=== PATIENT | female | born 1955 | race Caucasian/White ===

== ENCOUNTER 2020-08-27 07:31 | Day surgery (SDC) | payer MEDICARE, MEDICAID, SELFPAY ==
[2020-08-27] VITALS (7 sets, daily range): BP systolic 144–173; BP diastolic 90–105; PULSE 60–75; RESP 10–16; TEMP 36.2–36.9; O2SAT 90–95; BMI 24.5
[2020-08-27 08:07] LABS: COVID19 -Nasal RAPID Negative (Negative)
[2020-08-27] MEDS: SODIUM CHLORIDE 0.9% 1,000 ML 84 ML IV (08:44)
--- NOTE | 2020-08-27 09:17 | PM.HP.1 ---
History of Present Illness History of Present Illness Chief complaint: [facility] [place] Narrative: Indication possible GI bleed with history of cirrhosis rule out esophageal varices Patient History Medical History (Updated 08/27/20 @ 08:43 by Zakia Hassan RN) Hypertension Liver cirrhosis Family & Social History Social History: household members none Tobacco & Substance use: Tobacco type cigarettes Smoking Status Current some day smoker alcohol intake frequency holiday/special occasion Substance Use Type does not use Meds Home Medications and Allergies Allergies Allergy/AdvReac Type Severity Reaction Status Date / Time gabapentin Allergy Fainting Verified 08/27/20 08:42 risperidone [From Risperdal] Allergy Verified 08/27/20 08:42 Exam Vital Signs (past 8 hours): - 08/27/20 08:32 Temperature 97.2 F L Pulse Rate 71 Respiratory Rate 16 Blood Pressure 173/105 H Pulse Oximetry 95 Oxygen Delivery Method Room Air Narrative Exam Narrative: Oropharynx free of lesions Chest clear to auscultation percussion Cardiac exam reveals no S3 or murmur Objective Labs Labs: Laboratory Results - last 24 hr 08/27/20 07:41 SARS-CoV-2 (PCR) Negative Assessment & Plan Assessment & Plan narrative: Cirrhosis with possible history of bleed. Rule out esophageal varices not present on endoscopy previously. Risks, benefits, alternatives have been explained.
--- NOTE | 2020-08-27 09:18 | PM.OP.ENDO ---
Procedure & Clinicians Study performed: EGD Indications: Cirrhosis rule out varices Surgeon: Palak Valenzuela Procedure Notes Procedure in detail: After informed consent was obtained the patient was placed in left lateral decubitus position. Video upper scope was placed into the oropharynx and with the patient's help swelled into the esophagus. The esophagus stomach and duodenum were carefully examined. On withdrawal, retroflexed view the GE junction was performed. The scope was removed. The patient tolerated procedure well. Blood loss none Complications none Sedation Total sedation time 11 minutes Versed 4 mg fentanyl 100 micro g IV titration Findings 1. No esophageal varices and no peptic esophagitis 2. Intense striped gastritis in the antrum body with some adherent hematin flecks in the antrum. 3. Mild gastropathy of portal hypertension 4. Normal duodenal bulb and sweep Rhondi will stay on her current medications and have follow-up EGD in 1 year to check for esophageal varices.
[2020-08-27] MEDS: fentaNYL 250 MCG/5 ML INJ IV (09:25)
[2020-08-27] MEDS: MIDAZOLAM 5 MG/5 ML VIAL IV (09:30)
--- NOTE | 2020-08-27 09:57 | SUR.PHASEI ---
Pt received to PACU at 0936 after EGD with sedation. Report from ROSALINDA Sommer. Bilat hearing aides in place.
== END 2020-08-27 10:25 | disposition home or self-care (01) ==
PROVIDERS: PCP Family Medicine; Referring Provider Internal Medicine Gastroenterology; Visit Provider Internal Medicine Gastroenterology
PROC: 0DJ08ZZ Inspection of Upper Intestinal Tract, Via Natural or Artificial Opening Endoscopic (ICD-10-PCS; CPT 43235; principal; 2020-08-27 09:00)
DX: K70.30 Alcoholic cirrhosis of liver without ascites (principal); Z86.19 Personal history of other infectious and parasitic diseases; Z20.822 Contact with and (suspected) exposure to COVID-19; F17.210 Nicotine dependence, cigarettes, uncomplicated; K29.70 Gastritis, unspecified, without bleeding; K76.6 Portal hypertension; K31.89 Other diseases of stomach and duodenum
CPT/HCPCS: 43235; 87635; J2250; J3010

== ENCOUNTER → 2020-11-25 12:02 | Outpatient (CLI) | payer MEDICARE, MEDICAID, SELFPAY ==
--- NOTE | 2020-11-25 12:07 | DI.MRI.S_ITS ---
BREAST MRI OF BOTH BREASTS: 11/25/2020 CLINICAL: Coagulation defect. TECHNIQUE: The patient was placed prone in a dedicated breast imaging coil. Precontrast axial STIR and 3D FLASH without fat saturation sequences were obtained. Both before and after bolus injection of contrast, sequential 1-minute axial 3D FLASH with fat saturation sequences for 3 time points, with subtraction images and maximum intensity projections (MIP's) generated. Delayed sagittal FLASH images with fat saturation were also obtained. Computer-aided detection, including computer algorithm analysis of MRI image data for lesion detection and characterization, pharmacokinetic analysis, with further physician review for interpretation, was performed. COMPARISON: [facility], , US LEFT BREAST, 03/18/2020, 11:06. Outside Film, CT, CT ABDOMEN PELVIS WITH CONTRAST, 03/30/2019, 13:57. [facility], , MRI BREAST BILATERAL W / WO CONTRAST, 03/04/2020, 15:22. FINDINGS: Image quality: Excellent. There is mild background parenchymal enhancement. Right breast: No mass or non masslike enhancement. Left breast: An oval enhancing mass with smooth margins measures 0.7 x 0.6 x 0.6 cm and is present in the 3 o'clock position of the left breast at a middle depth. It appears stable given differences in technique between two exams. Kinetic analysis demonstrates benign enhancement pattern with medium initial enhancement and persistent/plateau delayed characteristics. Immediately anterior in the breast at the 3 o'clock position, there is enhancing cluster of foci which demonstrates benign enhancement pattern. This cluster measures 6 mm in greatest extent. A microlobulated mass measuring 0.7 x 0.8 x 0.8 cm with slightly spiculated margins is present at the one to 2 o'clock position at a mid to posterior depth, better defined on the current study. Kinetic analysis demonstrates medium initial enhancement and benign, persistent delayed enhancement. Miscellaneous: The heart appears enlarged, accentuated by prone positioning. There are lingular atelectatic changes. No axillary adenopathy. There is a prominent left internal mammary chain lymph node which demonstrates a benign, fatty hilum. This area was not well imaged on the prior study. The visible portions of the liver appear normal. IMPRESSION: PROBABLY BENIGN 1. Stable size of 0.7 cm 03:00 o'clock left breast mass with benign enhancement characteristics, probably lymph node or fibroadenoma. 2. Cluster of enhancing foci anterior to the 03:00 o'clock mass is unchanged. 3. Slight increase in size and definition of a 0.8 cm benign-appearing enhancing mass at the one to 2 o'clock position in the left breast. 4. Incidental note made of prominence, but nonspecific left internal mammary chain node with benign features. 5. No suspicious right breast findings. BIRADS three, probably benign. Six-month follow-up MRI is recommended to assess stability of above findings. COMMENT: The imaging literature indicates that a negative contrast breast MRI examination has a high sensitivity and a moderate specificity for detecting and excluding invasive carcinomas to a detection threshold of 3-5 mm; nonetheless, appropriate clinical and mammographic follow-up are recommended. MRI is not sensitive for detecting DCIS (ductal carcinoma in situ) and may not detect large invasive neoplasms that show only minimal enhancement such as mucinous carcinoma. If there are suspicious calcifications or clinically worrisome palpable masses, then biopsy should still be considered. Invasive neoplasms can be hidden by co-existent and benign enhancement caused by mastitis, hormone therapy effects, radiation therapy, , and recent biopsy or surgery. False positive examinations can occur in a number of circumstances, including breasts that have recently been subject to invasive procedures and those that contain atypical ductal hyperplasia, hormonally stimulated glandular tissue, fat necrosis, or radial scars. This exam was interpreted at Station ID: [id number]. Electronically Signed By: Daxa bojorquez/:11/25/2020 17:02:32 letter sent: Followup Recommended ACR BI-RADS Category 3: Probably benign 3343F
== END ==
PROVIDERS: PCP Family Medicine; Referring Provider Internal Medicine; Visit Provider Internal Medicine
DX: Z12.39 Encounter for other screening for malignant neoplasm of breast (principal); N63.25 Unspecified lump in the left breast, overlapping quadrants; D68.9 Coagulation defect, unspecified
CPT/HCPCS: 77049

== ENCOUNTER → 2021-06-04 09:10 | Outpatient (CLI) | payer MEDICARE, MEDICAID, SELFPAY ==
--- NOTE | 2021-06-04 09:12 | DI.ECHO.S_ITS ---
[facility] +---------+ : : [address] : : : : [id number] : : : : Phone: [phone]+ Echocardiogram Report + + :Name: SWETHA EPPS Study Date: 06/04/2021 Height: 62 in : :[facility] ReadingLocation: Weight: 140 lb : : Gender: Female BSA: 1.6 m2 : :: 1955 Age: 65 yrs BP: 127/84 mmHg: :Reason For Study: DYSPNEA : :Ordering Physician: YOVANI, : :CHAPARRO KAIS[facility] Performed By: Leann Dueñas : :Referring: CHAPARRO PINA MD : + + Interpretation Summary The left ventricular cavity is small. The ejection fraction is estimated to be 60-65%. The interventricular septum is flattened, consistent with a right ventricular pressure/volume condition. Grade II diastolic dysfunction. The right ventricle is moderately dilated. Right ventricular systolic function is moderately reduced. There is mild mitral regurgitation. There is mild tricuspid regurgitation. PASP is approximately 50 to 55 mmHg. Compared to the prior study dated 10/29/2020, there has been a decrease in PA pressure. Procedure: A two-dimensional transthoracic echocardiogram with color flow and Doppler was performed. The study quality was technically adequate. Comparison is made with the echocardiogram of 10/29/2020. The patient was in sinus rhythm with heart rates between 59-63 bpm during the exam. Left Ventricle: The left ventricular cavity is small. The ejection fraction is estimated to be 60-65%. The interventricular septum is flattened, consistent with a right ventricular pressure/volume condition. Grade II diastolic dysfunction. Right Ventricle: The right ventricle is moderately dilated. Right ventricular systolic function is moderately reduced. Atria: The left atrium is mildly dilated. Right atrial size is normal. There is no Doppler evidence for an interatrial shunt. Mitral Valve: The mitral valve leaflets appear mildly thickened, but open well. There is mild mitral regurgitation. Aortic Valve: The aortic valve is mildly calcified. The aortic valve is trileaflet. There is no aortic valve stenosis. No aortic regurgitation is present. Tricuspid Valve: The tricuspid valve is normal in structure and function. There is mild tricuspid regurgitation. PASP is approximately 50 to 55 mmHg. Pulmonic Valve: The pulmonic valve leaflets are thin and pliable; valve motion is normal. There is trace pulmonic regurgitation. Great Vessels: The aortic root is normal size. The dimensions of the ascending aorta are normal. The IVC is of normal diameter and collapses greater than 50% with a sniff. This suggests a low right atrial pressure of 3 mm Hg. Pericardium/ Pleura There is no pericardial effusion. There is no pleural effusion. MMode/2D Measurements & Calculations LVIDd: 4.0 cm LVOT diam: 2.0 cm LVIDs: 2.8 cm Ao root diam: 2.8 cm FS: 31.3 % asc Aorta Diam: 2.6 cm IVSd: 0.62 cm Ao Arch Diam (Prox Trans): 3.0 cm LVPWd: 1.0 cm LV ragland. diameter/BSA (cm/m^2): 2.5 LV sys. diameter/BSA (cm/m^2): 1.7 LA A2 area: 20.8 cm2 RA long axis: 6.3 cm LA A4 area: 18.2 cm2 RA area: 17.5 cm2 LA length (vol): 5.2 cm RA vol: 41.5 ml LA vol: 61.4 ml RA : 25.3 ml/m2 LA vol index: 37.4 ml/m2 IVC diam: 1.3 cm RVD1 (basal): 4.0 cm RVD2 (mid): 3.3 cm TAPSE: 1.7 cm Doppler Measurements & Calculations Ao V2 max: 148.7 cm/sec LVOT Max Dung: 97.5 cm/sec Ao V2 mean: 114.0 cm/sec LV V1 max P.8 mmHg Ao max P.8 mmHg LV V1 VTI: 21.8 cm Ao mean P.5 mmHg NEHEMIAS(I,D): 1.8 cm2 Ao V2 VTI: 36.9 cm NEHEMIAS(V,D): 2.0 cm2 sev ratio: 0.59 NEHEMIAS indexed to BSA (cm^2/m^2): 1.1 MV E max dung: 68.9 cm/sec TR max dung: 332.6 cm/sec MV A max dung: 86.8 cm/sec TR max P.3 mmHg MV E/A: 0.79 PA V2 max: 80.1 cm/sec Med Peak E' Dung: 3.7 cm/sec PA V2 mean: 51.5 cm/sec E/E' med: 18.7 PA mean P.3 mmHg Lat Peak E' Dung: 6.8 cm/sec PA pr(Accel): 24.2 mmHg E/E' lat: 10.2 E/e' average: 14.4 MV dec time: 0.29 sec [facility] 66.6 ml Reading Physician:10:59 AM
== END ==
PROVIDERS: PCP Family Medicine; Referring Provider Radiology Diagnostic Radiology; Visit Provider Radiology Diagnostic Radiology
DX: R06.00 Dyspnea, unspecified (principal); I08.1 Rheumatic disorders of both mitral and tricuspid valves
CPT/HCPCS: 93306

== ENCOUNTER → 2021-06-17 08:27 | Outpatient (CLI) | payer MEDICARE, MEDICAID, SELFPAY | PROVIDERS: PCP Family Medicine; Referring Provider Internal Medicine; Visit Provider Internal Medicine | DX: Z12.31 Encounter for screening mammogram for malignant neoplasm of breast (principal); Z53.20 Procedure and treatment not carried out because of patient's decision for unspecified reasons ==

== ENCOUNTER → 2021-07-10 11:24 | Outpatient (CLI) | payer MEDICARE, MEDICAID, SELFPAY ==
--- NOTE | 2021-07-10 | DI.MRI.S_ITS ---
BREAST MRI OF BOTH BREASTS: 07/10/2021 CLINICAL: MRI bilat. 6 month f/u left. TECHNIQUE: The patient was placed prone in a dedicated breast imaging coil. Precontrast axial STIR and 3D FLASH without fat saturation sequences were obtained. Both before and after bolus injection of contrast, sequential 1-minute axial 3D FLASH with fat saturation sequences for 3 time points, with subtraction images and maximum intensity projections (MIP's) generated. Delayed sagittal FLASH images with fat saturation were also obtained. Computer-aided detection, including computer algorithm analysis of MRI image data for lesion detection and characterization, pharmacokinetic analysis, with further physician review for interpretation, was performed. COMPARISON: [facility], , US LEFT BREAST, 03/18/2020, 11:06. [facility], , MRI BREAST BILATERAL W / WO CONTRAST, 03/04/2020, 15:22. [facility], , MR BREAST BI WO/W CON, 11/25/2020, 12:44. FINDINGS: Image quality: Study is degraded by moderate patient motion artifact secondary to nausea with additional imaging/incompletely fat saturation on multiple sequences. Patient did not complete the entire examination secondary to nausea and did not wish to proceed. There is mild background parenchymal enhancement. Right breast: No suspicious mass, non-mass enhancement, or architectural distortion. Stable appearance/distribution of background parenchymal enhancement. No skin or nipple abnormalities. Left breast: Accounting for differences in imaging technique, stable oval enhancing mass in the lateral aspect of the left breast at approximately the 3 o'clock position middle depth measuring 0.7 x 0.9 cm in axial cross-sectional dimension (image 55/series 6). This is T2 hyperintense as before. Imaging on the sagittal plane not performed due to patient terminating the exam. The previously described cluster of enhancing foci immediately anterior to this mass is stable to slightly decreased in conspicuity measuring approximately 0.7 x 0.5 cm in axial cross-sectional dimension (image 58/series 6). There is an enhancing 0.7 x 0.7 cm mass in the 2 o'clock position middle depth (image 72/series 6) which also appears relatively stable in size and appearance when accounting for slight differences in technique. Immediately anterior there is a 3 mm enhancing foci which appears more prominent and slightly larger compared to the prior study. Imaging on the sagittal plane not performed due to patient terminating the exam. Otherwise, no other new suspicious findings. No skin or nipple abnormalities. As before, these masses demonstrate mixed delayed phase enhancement kinetics. Miscellaneous: Redemonstration of mildly prominent left internal mammary chain lymph node which maintains normal reniform morphology, thin uniform cortex and central fatty hilum. IMPRESSION: INCOMPLETE: NEEDS ADDITIONAL IMAGING EVALUATION 1. Study limited due to moderate patient motion artifact and incomplete/heterogeneous fat saturation secondary to patient nausea. Patient did not want to complete the remainder of the examination. Additionally, no recent comparison mammogram is available for review. 2. Accounting for study limitation and slight differences in imaging technique, there are stable enhancing masses noted at the 2 o'clock and 3 o'clock positions middle depth of the left breast. The 3 o'clock mass correlates with possible fibroadenoma or lymph node seen on prior breast ultrasound dated March 18, 2020. There is, however, interval increase in size and prominence of a 3 mm enhancing focus immediately anterior to the 2 o'clock mass. This is nonspecific and is favored to represent more prominent background parenchymal enhancement. Consider second-look left breast ultrasound to re-evaluate these findings as the full MRI evaluation was not completed. Additionally, recommend updated mammographic evaluation or obtain copies of prior mammograms. 3. Stable cluster of enhancing foci immediately anterior to the 3 o'clock left breast mass. 4. Prominent but otherwise normal appearing superior left internal mammary chain lymph node, stable. COMMENT: The imaging literature indicates that a negative contrast breast MRI examination has a high sensitivity and a moderate specificity for detecting and excluding invasive carcinomas to a detection threshold of 3-5 mm; nonetheless, appropriate clinical and mammographic follow-up are recommended. MRI is not sensitive for detecting DCIS (ductal carcinoma in situ) and may not detect large invasive neoplasms that show only minimal enhancement such as mucinous carcinoma. If there are suspicious calcifications or clinically worrisome palpable masses, then biopsy should still be considered. Invasive neoplasms can be hidden by co-existent and benign enhancement caused by mastitis, hormone therapy effects, radiation therapy, , and recent biopsy or surgery. False positive examinations can occur in a number of circumstances, including breasts that have recently been subject to invasive procedures and those that contain atypical ductal hyperplasia, hormonally stimulated glandular tissue, fat necrosis, or radial scars. Electronically Signed By: Niles June M.D. aty/:07/15/2021 10:25:04 ACR BI-RADS Category 0: Incomplete [id number]
== END ==
PROVIDERS: PCP Physician Assistant; Referring Provider Internal Medicine; Visit Provider Internal Medicine
DX: Z12.31 Encounter for screening mammogram for malignant neoplasm of breast (principal); N63.21 Unspecified lump in the left breast, upper outer quadrant
CPT/HCPCS: 77049; A9579

== ENCOUNTER → 2021-09-28 12:24 | Outpatient (CLI) | payer MEDICARE, MEDICAID, SELFPAY ==
--- NOTE | 2021-09-28 12:27 | DI.US.S_ITS ---
LIMITED ULTRASOUND OF LEFT BREAST AND AXILLA: 09/28/2021 CLINICAL: Patient refuses mammograms. Incomplete recent brst MRI. Comparison is made to exams dated: 07/10/2021 breast MRI, 11/25/2020 breast MRI, 11/25/2020 breast MRI - [facility], 03/18/2020 ultrasound, and 03/04/2020 breast MRI - [facility]. Color flow and real-time ultrasound of the left breast 3 o'clock, and axilla regions were performed. Rodriguez scale images of the real-time examination were reviewed. There is a 0.8 cm x 0.7 cm x 0.7 cm oval mass with a circumscribed margin in the left breast at 3 o'clock middle depth 3 cm from the nipple. This oval mass is hypoechoic. This correlates with breast MRI findings. Color flow imaging demonstrates that there is no vascularity present. There also is a 0.4 cm x 0.3 cm x 0.3 cm oval mass in the left breast at 3 o'clock anterior depth 3 cm from the nipple. This oval mass is hypoechoic. This correlates with breast MRI findings. Color flow imaging demonstrates that there is no vascularity present. This is located 0.8 cm from the above described mass. No significant abnormalities were seen sonographically in the left axilla. IMPRESSION: PROBABLY BENIGN The 0.8 cm mass in the left breast at 3 o'clock middle depth resembles a lymph node or a fibroadenoma and is probably benign. The 0.4 cm mass in the left breast at 3 o'clock anterior depth is consistent with a fibroadenoma and is probably benign. A follow-up mammogram and an ultrasound in 6 months is recommended to demonstrate stability. Patient will be due for right mammogram at that time. Prior MRI demonstrated enhancing benign-appearing right breast masses. These could represent additional fibroadenomas. A breast MRI in 6 months could demonstrate stability of these masses. Exam findings were conveyed to the patient. Patient is advised to monitor for significant change. This exam was interpreted at Station ID: [id number]. Electronically Signed By: Mustapha Guerrero M.D. slc/:09/28/2021 13:35:37 copy to: Fatoumata Krishnan letter sent: Followup Recommended Ultrasound BI-RADS: 3 Probably benign
== END ==
PROVIDERS: PCP Physician Assistant; Referring Provider Internal Medicine; Visit Provider Internal Medicine
DX: R92.8 Other abnormal and inconclusive findings on diagnostic imaging of breast (principal); N63.25 Unspecified lump in the left breast, overlapping quadrants
CPT/HCPCS: 76642

== ENCOUNTER → 2022-04-22 10:34 | Outpatient (CLI) | payer MEDICARE, MEDICAID, SELFPAY ==
--- NOTE | 2022-04-22 | DI.MRI.S_ITS ---
BREAST MRI OF BOTH BREASTS: 04/22/2022 CLINICAL: F/u left breast lump. PROCEDURE: MR BREAST BI WO/W CON INDICATIONS: FOLLOWING LEFT BREAST LUMP TECHNIQUE: The patient was placed prone in a dedicated breast imaging coil. Precontrast axial STIR and 3D FLASH without fat saturation sequences were obtained. Both before and after bolus injection of contrast, sequential 1-minute axial 3D FLASH with fat saturation sequences for 3 time points, with subtraction images and maximum intensity projections (MIP's) generated. CONTRAST: 20 cc ProHance IV contrast. Computer-aided detection, including computer algorithm analysis of MRI image data for lesion detection and characterization, pharmacokinetic analysis, with further physician review for interpretation, was performed. COMPARISON: [facility], US, US BREAST LT LIMITED, 09/28/2021, 13:01. [facility], , MR BREAST BI WO/W CON, 11/25/2020, 12:44. [facility], , US LEFT BREAST, 03/18/2020, 11:06. [facility], , MRI BREAST BILATERAL W / WO CONTRAST, 03/04/2020, 15:22. [facility], , MR BREAST BI WO/W CON, 07/10/2021, 12:06. FINDINGS: Image quality: Good. Post-contrast sagittal images of the right and left breast were not obtained as the exam was terminated by the patient prior to image acquisition. There is mild background parenchymal enhancement. Right breast: No mass identified. Small enhancing foci are unchanged. Left breast: Left breast 3 o'clock middle depth enhancing mass measuring 0.8 cm, (/58), previously 0.9 cm, and more remotely 0.7 cm on 03/04/2020. The mass is not felt to be significantly changed in size. Kinetic analysis demonstrates intermediate initial phase and plateau delayed phase. The mass is circumscribed, T1 isointense and T2 hyperintense. Left breast 2 o'clock middle depth enhancing mass measuring 0.8 cm, (13/76), previously 0.7 cm, and more remotely 0.6 cm on 03/04/2020. Kinetic analysis demonstrates slow initial phase and persistent delayed phase. The mass is circumscribed, T1 isointense and heterogeneous T2 hyperintense with dark septations. There are a few enhancing foci in the left breast. Miscellaneous: No enlarged lymph nodes. IMPRESSION: BENIGN 1. Right breast: No mass identified. 2. Left breast: Circumscribed enhancing masses at 2 o'clock and 3 o'clock measuring at 0.8 cm and 0.8 cm, not significantly changed compared to MRI 03/04/2020. These are most consistent with fibroadenomas and demonstrate long-term stability. 3. Lymph nodes: No enlarged lymph nodes. BIRADS 2. A 1 year screening mammogram is recommended. COMMENT: The imaging literature indicates that a negative contrast breast MRI examination has a high sensitivity and a moderate specificity for detecting and excluding invasive carcinomas to a detection threshold of 3-5 mm; nonetheless, appropriate clinical and mammographic follow-up are recommended. MRI is not sensitive for detecting DCIS (ductal carcinoma in situ) and may not detect large invasive neoplasms that show only minimal enhancement such as mucinous carcinoma. If there are suspicious calcifications or clinically worrisome palpable masses, then biopsy should still be considered. Invasive neoplasms can be hidden by co-existent and benign enhancement caused by mastitis, hormone therapy effects, radiation therapy, , and recent biopsy or surgery. False positive examinations can occur in a number of circumstances, including breasts that have recently been subject to invasive procedures and those that contain atypical ductal hyperplasia, hormonally stimulated glandular tissue, fat necrosis, or radial scars. Dictated by: Mustapha Guerrero M.D. on 04/22/2022 at 14:56 This exam was interpreted at Station ID: [id number]. Electronically Signed By: Mustapha Guerrero M.D. slc/:04/22/2022 15:35:51 copy to: Fatoumata Krishnan letter sent: Normal Exam ACR BI-RADS Category 2: Benign Finding(s) 3342F
== END ==
PROVIDERS: PCP Physician Assistant; Referring Provider Internal Medicine; Visit Provider Internal Medicine
DX: N63.25 Unspecified lump in the left breast, overlapping quadrants (principal); N63.21 Unspecified lump in the left breast, upper outer quadrant
CPT/HCPCS: 77049; A9579

== ENCOUNTER → 2023-06-21 12:27 | Outpatient (CLI) | payer MEDICARE, MEDICAID, SELFPAY ==
--- NOTE | 2023-06-21 | DI.MRI.S_ITS ---
BREAST MRI OF BOTH BREASTS: 06/21/2023 CLINICAL: Breast masses. Comparison is made to exams dated: 04/22/2022 breast MRI, 09/28/2021 ultrasound, 07/10/2021 breast MRI, and 11/25/2020 breast MRI - [facility]. INDICATIONS: Breast lesion TECHNIQUE: The patient was placed prone in a dedicated breast imaging coil. Precontrast axial STIR and 3D FLASH without fat saturation sequences were obtained. Both before and after bolus injection of contrast, sequential 1-minute axial 3D FLASH with fat saturation sequences for 3 time points, with subtraction images and maximum intensity projections (MIP's) generated. Delayed sagittal FLASH images with fat saturation were not obtained as the patient terminated the exam early. Computer-aided detection, including computer algorithm analysis of MRI image data for lesion detection and characterization, pharmacokinetic analysis, with further physician review for interpretation, was performed. FINDINGS: Image quality: Diagnostic. However, sagittal post-contrast sequences were not acquired as the patient terminated the exam early. There is mild background parenchymal enhancement. Scattered fibroglandular elements are seen in both breasts. Right breast: No mass or suspicious non-mass enhancement. No axillary or internal mammary lymphadenopathy. Left breast: Stable benign masses again seen at the 2 o'clock and 3 o'clock positions posterior depth that again are most likely fibroadenomas. No new mass or suspicious non-mass enhancement. No axillary or internal mammary lymphadenopathy. Miscellaneous: Stable benign nonenhancing [id number] lesions in the left hepatic lobe. The anterior chest wall and upper abdomen otherwise demonstrate no significant abnormality. IMPRESSION: BENIGN Stable benign left breast masses. No MR evidence of malignancy. BIRADS 2: Benign. Recommend annual screening mammograms. COMMENT: The imaging literature indicates that a negative contrast breast MRI examination has a high sensitivity and a moderate specificity for detecting and excluding invasive carcinomas to a detection threshold of 3-5 mm; nonetheless, appropriate clinical and mammographic follow-up are recommended. MRI is not sensitive for detecting DCIS (ductal carcinoma in situ) and may not detect large invasive neoplasms that show only minimal enhancement such as mucinous carcinoma. If there are suspicious calcifications or clinically worrisome palpable masses, then biopsy should still be considered. Invasive neoplasms can be hidden by co-existent and benign enhancement caused by mastitis, hormone therapy effects, radiation therapy, , and recent biopsy or surgery. False positive examinations can occur in a number of circumstances, including breasts that have recently been subject to invasive procedures and those that contain atypical ductal hyperplasia, hormonally stimulated glandular tissue, fat necrosis, or radial scars. Return to annual mammogram screening schedule is recommended. This exam was interpreted at Station ID: [id number]. Electronically Signed By: Edgard Ellington M.D. ar/:06/21/2023 16:24:30 Entry: - 06/22/2023 12:48:06 copy to: Fatoumata Krishnan ACR BI-RADS Category 2: Benign Finding(s) 3342F
== END ==
LOC: MRI 12:28
PROVIDERS: PCP Physician Assistant; Referring Provider Internal Medicine; Visit Provider Internal Medicine
DX: N63.20 Unspecified lump in the left breast, unspecified quadrant (principal)
CPT/HCPCS: 77049; A9579

== ENCOUNTER → 2023-11-09 10:39 | Outpatient (CLI) | payer MEDICARE, MEDICAID, SELFPAY ==
--- NOTE | 2023-11-09 10:41 | DI.RAD.S_ITS ---
PROCEDURE: XR LUMBAR SPINE MIN 4V INDICATIONS: BACK PAIN TECHNIQUE: 5 views of the lumbar spine were acquired, including bilateral oblique views. COMPARISON: None. FINDINGS: Bones: Convex right lumbar scoliosis present. No vertebral anomalies. Diffuse disc space narrowing and arthropathy present. Atherosclerotic calcification in the abdominal aorta noted without evidence of aneurysm. Soft tissues: Overlying bowel gas pattern is normal. No suspicious soft tissue calcifications. Oblique images: No pars defects. IMPRESSION: Degenerative disc disease, arthropathy and dextroscoliosis without fracture or malalignment. Osteopenia Approved by: All Harmon M.D. on 11/09/2023 at 12:09
== END ==
PROVIDERS: PCP Physician Assistant; Referring Provider Physical Medicine & Rehabilitation; Visit Provider Physical Medicine & Rehabilitation
DX: M51.16 Intervertebral disc disorders with radiculopathy, lumbar region (principal); M47.26 Other spondylosis with radiculopathy, lumbar region; M48.062 Spinal stenosis, lumbar region with neurogenic claudication; M41.9 Scoliosis, unspecified; M85.88 Other specified disorders of bone density and structure, other site; M54.9 Dorsalgia, unspecified; R26.81 Unsteadiness on feet
CPT/HCPCS: 72110; 99214

== ENCOUNTER → 2024-06-20 10:46 | Outpatient (CLI) | payer MEDICARE, MEDICAID, SELFPAY ==
--- NOTE | 2024-06-20 10:50 | DI.MRI.S_ITS ---
MR breast BI wo/w con: 06/20/2024. BI-RADS: 2 CLINICAL: 68-year old female for bilateral diagnostic breast MRI. No personal or first-degree family history of breast cancer. The patient reports a palpable abnormality in the left breast. PRIOR EXAMS 06/21/2023, 04/22/2022, 09/28/2021, 07/10/2021, 11/25/2020, 03/18/2020, 03/04/2020. MRI TECHNIQUE Bilateral breast MRI was performed on a 1.5 Cecilia magnet using a dedicated breast coil with mild compression. Axial T1 and T2 STIR sequences were obtained. Dynamic contrast enhanced VIBRANT fat-suppressed sequences were obtained. Delayed sagittal high resolution or sagittal reconstructed isotropic sequence was also obtained. Subtraction images and maximum intensity projection images were obtained. The study was evaluated using [employer] software. Gadavist was injected intravenously: mL. IV Contrast: 20 ml ProHance. FIBROGLANDULAR TISSUE Bilateral: B. Scattered fibroglandular tissue. BACKGROUND PARENCHYMAL ENHANCEMENT Bilateral: Moderate symmetrical background parenchymal enhancement. BREAST FINDINGS Right: No suspicious mass, suspicious non-mass enhancement, or other concerning finding identified. No significant change since previous exam(s). Left: Benign-appearing mass or masses noted. There is no suspicious finding with benign findings noted. No significant change since previous exam(s). IMPRESSION: Right * No evidence of malignancy. Left * No evidence of malignancy with benign findings. RECOMMENDATIONS Bilateral * Annual screening mammography. OVERALL ASSESSMENT CATEGORY BI-RADS-2: Benign. ELECTRONICALLY SIGNED: Mustapha Guerrero M.D. on 06/20/2024 at 04:44:15 PM PT Interpreting Station ID: [id number]
== END ==
LOC: MRI 10:49
PROVIDERS: PCP Nurse Practitioner Acute Care; Referring Provider Internal Medicine Medical Oncology; Visit Provider Internal Medicine Medical Oncology
DX: N63.20 Unspecified lump in the left breast, unspecified quadrant (principal)
CPT/HCPCS: 77049; A9579

== ENCOUNTER → 2024-12-04 12:17 | Outpatient (CLI) | payer MEDICARE, MEDICAID, SELFPAY ==
--- NOTE | 2024-12-04 12:18 | DI.MRI.S_ITS ---
PROCEDURE: MR LUMBAR SPINE WO CON INDICATIONS: STRAIN OF LUMBAR TECHNIQUE: Noncontrast sagittal T1 spin echo and T2 fast echo, sagittal STIR, and T2 fast spin echo through the lumbar spine. In cases with scoliosis, additional coronal T2 fast spin echo may be performed. COMPARISON: Outside Film, MR, MR LUMBAR SPINE WITHOUT CONTRAST, 10/25/2023, 9:23. [facility], CR, XR LUMBAR SPINE WITH FLEXION EXTENSION 5 VIEWS, 11/20/2024, 10:07. FINDINGS: Image quality: Excellent Moderate dextroscoliosis lumbar spine, centered at L2-3. Mild retrolisthesis of L4 on L5. Vertebral body height of the lumbar spine are well maintained. Marked fibrovascular end plate change at the right aspect of L4-5. Multilevel disc bulge and disc desiccation. Conus terminates at the level of the L1, and is unremarkable. Right neural foraminal stenosis: Mild at L4-5. Left neural foraminal stenosis: Mild at L2-3, L3-4. Axial images: T12-L1: Mild disc bulge. No central canal stenosis. L1-2: Mild disc bulge. Mild bilateral facet arthropathy. No central canal stenosis. L2-3: Mild disc bulge superimposed left foraminal disc protrusion. No central canal stenosis. L3-4: Moderate bilateral facet arthropathy. Disc bulge. Mild central canal stenosis. L4-5: Disc bulge. Moderate right, mild left facet arthropathy. Mild central canal stenosis. L5-S1: Mild bilateral facet arthropathy. Mild disc bulge. No central canal stenosis. Visualized sacrum is intact. Bilateral renal cysts. Thickening of the left adrenal gland. Dilated common bile duct, measuring approximately 1.3 cm, partially visualized. IMPRESSION: 1. Multilevel mild central canal and neural foraminal stenosis of the lumbar spine, unchanged. Dictated by: Amy Kerr M.D. on 12/04/2024 at 14:14 Approved by: Amy Kerr M.D. on 12/04/2024 at 14:26
== END ==
LOC: MRI 12:18
PROVIDERS: PCP Nurse Practitioner Acute Care; Referring Provider Physician Assistant Surgical; Visit Provider Physician Assistant Surgical
DX: S39.012A Strain of muscle, fascia and tendon of lower back, initial encounter (principal); M48.061 Spinal stenosis, lumbar region without neurogenic claudication; M51.16 Intervertebral disc disorders with radiculopathy, lumbar region; M51.17 Intervertebral disc disorders with radiculopathy, lumbosacral region; M47.26 Other spondylosis with radiculopathy, lumbar region; M47.27 Other spondylosis with radiculopathy, lumbosacral region; N28.1 Cyst of kidney, acquired; X58.XXXA Exposure to other specified factors, initial encounter
CPT/HCPCS: 72148